=== PATIENT | female | born 1955 | race Caucasian/White ===

== ENCOUNTER 2017-09-19 09:00 | Inpatient (IN) ==
[2017-09-19 12:10] LABS: Appearance,Urine CLEAR; Bilirubin,Urine NEG (NEG); Color,Urine YELLOW; Glucose,Urine (UA) NEGATIVE (NEG); Leukocyte Esterase,Urine NEG /uL (NEG); Nitrate,Urine NEG (NEG); Protein,Urine NEG (NEG); Specific Gravity,Urine 1.016 (1.000-1.035); Urine Blood NEG mg/dL (<0.03); Urobilinogen,Urine NEG (NEG)
[2017-09-19 12:30] LABS: Basophils # (Auto) 0 K/mcL (0.0-0.3); Basophils % (Auto) 0.5 % (0.0-2.0); Eosinophils # (Auto) 0.2 K/mcL (0.0-0.7); Eosinophils % (Auto) 2.6 % (0.0-7.0); Granulocytes % (Auto) 69.2 % (38.0-78.0); Lymphocytes # (Auto) 1.6 K/mcL (1.5-4.8); Lymphocytes % (Auto) 20.5 % (15.5-49.0); Mean Cell Volume 90.7 fL (80.0-100.0); Mean Corpuscular Hemoglobin 30.9 pg (26.0-34.0); Monocytes # (Auto) 0.6 K/mcL (0.1-0.9); Monocytes % (Auto) 7.2 % (1.0-12.0); Platelet Count 206 K/mcL (140-440); RBC 4.92 M/mcL (4.00-5.20); Red Cell Distribution Width 12.5 % (11.5-14.5)
[2017-09-19 12:52] LABS: Blood Urea Nitrogen 15 mg/dl (8-23)
[2017-09-24] MEDS ORDERED: CELECOXIB 200 MG CAPSULE PO SCH (05:00)
[2017-09-24] MEDS ORDERED: ceFAZolin 1 GM VIAL IV SCH (05:00)
[2017-09-24] MEDS ORDERED: ACETAMINOPHEN 500 MG TABLET PO SCH (05:00)
[2017-09-24] MEDS ORDERED: PREGABALIN 75 MG CAPSULE PO SCH (05:00)
[2017-09-24] MEDS ORDERED: ROPIVACAINE HCL/PF 20 ML VIAL IJ ONE (07:40)
[2017-09-24] MEDS ORDERED: ROPIVACAINE HCL/PF 49.5 ML, EPINEPHrine 0.5 MG, 0.9 % SODIUM CHLORIDE 9 ML IJ ONE (09:06)
[2017-09-24] MEDS ORDERED: MIDAZOLAM 5 MG/5 ML VIAL IV ONE (09:30)
[2017-09-24] MEDS ORDERED: PROPOFOL 200 MG/20 ML VIAL IV ONE (09:30)
[2017-09-24] MEDS ORDERED: DEXAMETHASONE 10 MG/ML VIAL IV ONE (09:30)
[2017-09-24] MEDS ORDERED: LIDOCAINE HCL/PF 100 MG/5 ML SYRINGE IV ONE (09:30)
[2017-09-24] MEDS ORDERED: ePHEDrine 50 MG/ML AMPUL IV ONE (09:30)
[2017-09-24] MEDS ORDERED: TRANEXAMIC ACID 1,000 MG/10 ML VIAL IV ONE (09:30)
[2017-09-24] MEDS ORDERED: GENTAMICIN SULFATE 800 MG/20 ML VIAL IR ONE (09:47)
[2017-09-24] MEDS ORDERED: HYDROmorphone 2 MG/ML SYRINGE IV PRN ×2 (10:11→10:38)
[2017-09-24] MEDS ORDERED: PROMETHAZINE 25 MG/ML VIAL IV PRN (10:11)
[2017-09-24] MEDS ORDERED: ONDANSETRON 4 MG/2 ML VIAL IV PRN ×2 (10:11→10:38)
[2017-09-24] MEDS ORDERED: METHOCARBAMOL 1,000 MG/10 ML VIAL IV PRN (10:11)
[2017-09-24] MEDS ORDERED: MEPERIDINE 25 MG/ML SYRINGE IV PRN (10:11)
[2017-09-24] MEDS ORDERED: FLUMAZENIL 0.1 MG/ML ML IV PRN (10:11)
[2017-09-24] MEDS ORDERED: LACTATED RINGERS 250 ML IV PRN (10:11)
[2017-09-24] MEDS ORDERED: IPRATROPIUM/ALBUTEROL 3 ML AMPUL.NEB NEB PRN (10:11)
[2017-09-24] MEDS ORDERED: BENZOCAINE/MENTHOL 1 LOZENGE PO PRN ×2 (10:11→10:38)
[2017-09-24] MEDS ORDERED: NALOXONE HCL 0.4 MG/ML VIAL IV PRN (10:11)
[2017-09-24] MEDS ORDERED: diphenhydrAMINE 50 MG/ML VIAL IV PRN (10:11)
[2017-09-24] MEDS ORDERED: fentaNYL 100 MCG/2 ML VIAL IV PRN (10:11)
[2017-09-24] MEDS ORDERED: LACTATED RINGERS 1,000 ML IV SCH (10:15)
[2017-09-24] MEDS ORDERED: FLEETS ADULT ENEMA PR PRN (10:38)
[2017-09-24] MEDS ORDERED: ACETAMINOPHEN 325 MG TABLET PO PRN (10:38)
[2017-09-24] MEDS ORDERED: POLYETHYLENE GLYCOL 3350 17 GM PACKET PO PRN (10:38)
[2017-09-24] MEDS ORDERED: ONDANSETRON ODT 4 MG TABLET SL PRN (10:38)
[2017-09-24] MEDS ORDERED: TRANEXAMIC ACID 1,000 MG/10 ML VIAL IV SCH (10:38)
[2017-09-24] MEDS ORDERED: MAGNESIUM HYDROXIDE 30 ML ORAL.SUSP PO PRN (10:38)
[2017-09-24] MEDS ORDERED: BISACODYL 10 MG SUPP.RECT PR PRN (10:38)
--- NOTE | 2017-09-24 10:44 | Brief Operative Note ---
Date of procedure: 09/24/17 Pre-op diagnosis: Right hip djd Post-op diagnosis: same Procedure: Right CHARISSE Grafts/Implants: Yes Anesthesia: GETA Complications Description: 09/24/17 10:43 none Surgeon: Daniel Montiel [employer] Supervisor: Clint Stephenson Estimated blood loss (cc): 50 Specimens Removed/Pathology: none sent Condition: stable Disposition: PACU
--- NOTE | 2017-09-24 11:22 | Operative Note ---
DATE OF OPERATION: 09/24/2017 PREOPERATIVE DIAGNOSIS: Right hip degenerative arthritis, severe. POSTOPERATIVE DIAGNOSIS: Right hip degenerative arthritis, severe. PROCEDURE: Right total hip arthroplasty using cementless Loretta components. SURGEON: Daniel Montiel M.D. PARENT AIDE: Clint Stephenson PA-C. ANESTHESIA: General LMA. COMPLICATIONS: None. BLOOD LOSS: 50 mL. IMPLANTS: A 54 cementless Loretta cup with a dual mobility liner, a size 5 cementless stem with a neutral ceramic neck length and dual mobility liner. COMPLICATIONS: None. DESCRIPTION OF PROCEDURE: The patient was brought to the operating room and put to sleep with general LMA anesthesia. Once asleep, the patient had the right hip sterilely prepped and draped in the usual sterile fashion. Once this was done, we then confirmed the right hip as the operative site. She was turned in a left lateral position, Ioban placed over the skin and a superior posterior approach. Preop antibiotics and tranexamic acid had been given after the time out. We confirmed this both by x-ray, consent form, and initials on the skin. A timeout confirmed the procedure, the location, and the implants. Once done, we proceeded with superior posterior approach. We exposed the joint, dislocated the hip and made our neck cut at 34 mm from the center of hip rotation. Once this was done, I then subluxed the hip anteriorly, removed the remnants of the labrum, and reamed up to the size 54. A 54 cup was placed in 20 degrees of anteversion and 40 degrees of inclination. This was a cementless cup. A dual mobility liner was placed. I then prepared the femoral stem. We made a cookie cutter to lateralize and a lateralized reamer, and then we broached up to the size 4, took a picture with a size 4 implant. This appeared to be undersized as far as the implant, but equal leg length and position excellent. We then irrigated and then tapped into place and broached for a size 5 stem, reaming distally up to 12 mm. Once this was done, we then trialed the hip with a size 5 implant. Once this was done, we then implanted the size 5 stem after lateralizing slightly more. This countersunk down to the calcar, and we then placed a neutral neck length and a dual mobility ball and liner. The ceramic head had a neutral neck length. This was reduced. We irrigated thoroughly. Once this was done, I then repaired the capsule with #2 Ethibond, closed the skin with a Stratafix suture, closed the skin with 2-0 Vicryl and an adhesive closure on the skin. The patient tolerated this well without complication. RBH:colin Job ID: [id number] Doc ID: [id number] Daniel Montiel MD
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
[2017-09-24] MEDS: 0.45 % SODIUM CHLORIDE 1,000 ML IV SCH ×2 (12:50→21:34)
[2017-09-24] MEDS: 0.9 % SODIUM CHLORIDE 10 ML SYRINGE IV SCH ×2 (15:24→21:49)
[2017-09-24] MEDS: ceFAZolin 1 GM VIAL IV SCH (17:40)
[2017-09-24] MEDS: FERROUS SULFATE 325 MG TABLET PO SCH (17:41)
[2017-09-24] MEDS: HYDROcodone/APAP 10/325MG TABLET PO PRN (19:00)
[2017-09-24] MEDS: KETOROLAC 15 MG/ML VIAL IV PRN (19:01)
[2017-09-24] MEDS ORDERED: SENNOSIDES 1 TABLET PO SCH (21:00)
[2017-09-24] MEDS ORDERED: TEMAZEPAM 15 MG CAPSULE PO PRN (21:00)
[2017-09-24] MEDS: DOCUSATE SODIUM 100 MG CAPSULE PO SCH (21:32)
[2017-09-24] MEDS: ASPIRIN 325 MG ENTERIC COATED TABLET PO SCH (21:32)
[2017-09-25] MEDS: ceFAZolin 1 GM VIAL IV SCH (00:39)
[2017-09-25] MEDS: HYDROcodone/APAP 10/325MG TABLET PO PRN ×3 (01:24→14:22)
[2017-09-25] MEDS: KETOROLAC 15 MG/ML VIAL IV PRN (02:19)
[2017-09-25] MEDS: 0.9 % SODIUM CHLORIDE 10 ML SYRINGE IV SCH (05:52)
--- NOTE | 2017-09-25 07:50 | Orthopedic Progress Note ---
Subjective Patient information: Note initiated : 09/25/17 at 7:49 am Service Date, if different from initiated Date: [] Patient: Chaya Conner 62 y/o F admitted on 09/24/17 for Right Total Hip Arthroplasty Posterior. Chief Complaint: [Pt is stable this morning on post operative day 1 without any significant concerns or complaints. Patients vital signs have remained stable. Patients dressing is dry and exhibits a grossly intact neurovascular and neuromotor exam. Patients 10 point ROS is otherwise negative. ] Objective Vital signs: Vital Signs Temp Pulse Resp BP BP Pulse Ox 09/25/17 07:23 97 09/25/17 07:17 97.5 F 18 151/80 98 09/25/17 04:00 97.7 F 76 18 130/73 98 09/24/17 23:37 98.2 F 82 20 150/83 94 09/24/17 20:00 98.0 F 93 H 20 171/93 93 09/24/17 19:59 93 09/24/17 17:01 96 09/24/17 16:00 96 09/24/17 15:13 98.6 F 18 140/76 96 09/24/17 14:00 96 09/24/17 13:05 150/85 96 09/24/17 12:35 170/93 97 09/24/17 12:20 176/118 98 09/24/17 12:05 148/75 97 09/24/17 11:50 96.6 F L 16 180/99 96 09/24/17 11:36 97.8 F 09/24/17 11:29 80 13 174/92 100 09/24/17 11:14 92 H 13 145/80 98 09/24/17 11:09 90 12 135/74 96 09/24/17 11:04 89 18 127/75 99 09/24/17 10:59 69 13 107/55 98 09/24/17 10:54 64 14 106/53 98 09/24/17 10:49 97.1 F 97 H 14 116/54 97 09/24/17 10:39 96 Intake and Output 09/24/17 09/25/17 09/25/17 21:59 05:59 13:59 Intake Total 873 / 873 450 / 450 Output Total 1275 / 1275 500 / 500 Balance -402 / -402 -50 / -50 Intake: IV 873 / 873 Sodium Chloride 0.45% 1,000 ml 873 / 873 @ 100 mls/hr IV .Q10H PERNELL Rx#: [id number] Oral 450 / 450 Output: Void Amount 1275 / 1275 500 / 500 Other: # Voids 1 1 Weight 228 lb Intake & Output: Intake & Output 09/24/17 09/25/17 09/25/17 21:59 05:59 13:59 Intake Total 873 / 873 450 / 450 Output Total 1275 / 1275 500 / 500 Balance -402 / -402 -50 / -50 Weight 228 lb Intake: IV 873 / 873 Sodium Chloride 0.45% 1,000 ml 873 / 873 @ 100 mls/hr IV .Q10H PERNELL Rx#: [id number] Oral 450 / 450 Output: Void Amount 1275 / 1275 500 / 500 Other: # Voids 1 1 Incision: Yes healing Incision clean and dry: Yes Dressing: Yes clean, Yes dry Weight bearing status: full Neurological exam IM: Yes oriented X3, Yes motor sensory intact, Yes neurovascular intact Extremities exam IM: Yes Foot pink and warm, Yes neurovascular intact - Labs CBC & BMP: 09/25/17 05:39 09/19/17 10:05 Labs: Orthopedic Labs 09/19/17 10:05 PT 12.3 INR 0.9 APTT 34 09/25/17 09/19/17 05:39 10:05 Hgb 15.2 H Hct 36.2 44.6 Assessment and Plan (1) Hx of total hip arthroplasty The patient has been educated regarding dressing care, Physical Therapy recommendations, home exercises, restrictions, and follow up appointments. The patient has had all necessary DME prescribed. The patient has remained stable during their hospital course. The patient was discharge with a stable exam. Status: Acute
--- NOTE | 2017-09-25 07:52 | Discharge Summary ---
Ortho Discharge - CHARISSE - Patient Instructions Diet: Regular Diet Activity: activity as tolerated, weight bearing as tolerated Total Hip Protocol: Follow activity instructions as provided by Physical Therapy. Dressing Care: May shower in 2 days - Problem Maintenance (1) Hx of total hip arthroplasty Status: Acute - Follow Up Plan Follow Up Appointments: Daniel Montiel MD [Physician] - 10/11/17 1:10 pm Disposition: Home, Self-Care Prognosis: Good Rehab Potential: Good I certify that the patient requires SNF services: No Overall status at discharge: patient is progressing back to baseline - Orders For Discharge Prescriptions: Aspirin [Ecotrin] 325 mg PO BID #60 tab.ec Docusate Sodium [Colace] 100 mg PO BID #60 cap HYDROcodone/APAP 10/325MG [Virden 10/325Mg] 1 - 2 tab PO Q4HP PRN #75 tab PRN Reason: Pain Level 3-6 Additional Discharge Orders: Physical Therapy at Discharge - CHARISSE Location: Determined By Patient Toilet Riser Discharge Order Location: Determined By Patient Walker Location: Determined By Patient
[2017-09-25] MEDS ORDERED: VITAMIN D3 5,000 UNIT CAPSULE PO SCH (09:00)
[2017-09-25] MEDS ORDERED: POTASSIUM GLUCONATE 99 MG PO SCH (09:00)
[2017-09-25] MEDS ORDERED: UBIQUINOL 100 MG PO SCH (09:00)
[2017-09-25] MEDS ORDERED: MAGNESIUM OXIDE 400 MG TABLET PO SCH (09:00)
[2017-09-25] MEDS ORDERED: NON FORMULARY MEDICATION 1 DOSE MISCELL (Cinnamon Bark [Cinnamon] 500 MG) PO SCH (09:00)
[2017-09-25] MEDS ORDERED: GINGER 500 MG PO SCH (09:00)
[2017-09-25] MEDS: ASPIRIN 325 MG ENTERIC COATED TABLET PO SCH (09:36)
[2017-09-25] MEDS: FERROUS SULFATE 325 MG TABLET PO SCH (09:36)
[2017-09-25] MEDS: DOCUSATE SODIUM 100 MG CAPSULE PO SCH (09:36)
[2017-09-25] MEDS ORDERED: FLU VACC QS2017-18 36MOS UP/PF 60 MCG/0.5 ML SYRINGE IM ONE (10:00)
[2017-09-25] MEDS: 0.45 % SODIUM CHLORIDE 1,000 ML IV SCH (10:31)
== END 2017-09-25 15:55 | disposition home or self-care (01) | DRG 470 ==
LOC: MEDSUR 09-24 06:31
PROVIDERS: ADMIT Orthopaedic Surgery; ATTEND Orthopaedic Surgery